=== PATIENT | male | born 1990 | race Asian ===

== ENCOUNTER 2017-03-09 00:52 | Emergency (ER) | payer OTHER ==
[2017-03-09] MEDS ORDERED: TDAP ADULT 0.5 ML INJ (BOOSTRIX) IM ONE (00:55)
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
[2017-03-09 01:02] VITALS: BP 138/87; PULSE 107; RESP 16; TEMP 97.9; O2SAT 94
== END 2017-03-09 02:53 | disposition home or self-care (01) ==
PROC: 09QKXZZ Repair Nasal Mucosa and Soft Tissue, External Approach (ICD-10-PCS; principal; 2017-03-09)
DX: S01.21XA Laceration without foreign body of nose, initial encounter (principal); S40.812A Abrasion of left upper arm, initial encounter; Z23 Encounter for immunization; Y04.0XXA Assault by unarmed brawl or fight, initial encounter